=== PATIENT | female | born 1960 | race Caucasian/White ===

== ENCOUNTER 2023-01-12 20:13 | Emergency (ER) | payer OTHER, SELFPAY ==
--- NOTE | 2023-01-12 | DI.CT.S_ITS ---
PROCEDURE: CT LUMBAR SPINE WO CON INDICATIONS: FALL FROM LADDER, FRACTURED CALCANEUS TECHNIQUE: Noncontrast 3 mm thick sections acquired from the T12 level to the sacrum. Sagittal and coronal reformats were constructed. For radiation dose reduction, the following was used: automated exposure control. COMPARISON: [facility], CR, XR ANKLE RT MIN 3V, 01/12/2023, 20:37. FINDINGS: Image quality: There is mild motion artifact. Bones: There is preserved bony alignment. No acute vertebral body compression fractures. No suspicious lytic or blastic bony lesions. No pars defects. There is mild multilevel spinal canal and neural foraminal narrowing in the lower lumbar spine without high-grade stenosis. Soft tissues: No retroperitoneal masses or hematomas. Visualized aorta is normal in caliber. There is a 0.2 cm nonobstructing left renal stones. IMPRESSION: 1. No vertebral body compression fractures. Dictated by: Jesus Cruz M.D. on 01/12/2023 at 23:37 Approved by: Jesus Cruz M.D. on 01/12/2023 at 23:45
[2023-01-12 20:18] VITALS: BP 160/98; PULSE 98; RESP 17; TEMP 36.6; O2SAT 100; BMI 22.3
--- NOTE | 2023-01-12 20:21 | DI.RAD.S_ITS ---
PROCEDURE: XR ANKLE RT MIN 3V INDICATIONS: foot/ankle injury TECHNIQUE: 3 views of the ankle were acquired. COMPARISON: [facility], CR, XR FOOT RT MIN 3V, 01/12/2023, 20:37. FINDINGS: Bones: There is a mildly displaced fracture of the calcaneus extending to the subtalar joint. Remaining visualized osseous structures appear intact. Ankle mortise is normally aligned. No suspicious bony lesions. Soft tissues: No tibiotalar joint effusion. Achilles tendon appears normal. There is increased density in Kager's fat pad. IMPRESSION: 1. Mildly displaced calcaneus fracture extending to the subtalar joint. Dictated by: Jesus Cruz M.D. on 01/12/2023 at 22:05 Approved by: Jesus Cruz M.D. on 01/12/2023 at 22:06
--- NOTE | 2023-01-12 20:21 | DI.RAD.S_ITS ---
PROCEDURE: XR FOOT RT MIN 3V INDICATIONS: foot/ankle injury TECHNIQUE: 3 views of the foot were acquired. COMPARISON: None. FINDINGS: Bones: There is a mildly displaced fracture of the calcaneus with extension to the subtalar joint. No dislocations. Remaining visualized osseous structures appear intact. Soft tissues: No tibiotalar joint effusion. Achilles tendon appears normal. IMPRESSION: 1. Mildly displaced fracture of the calcaneus extending to the subtalar joint. Consider imaging of the spine if clinically indicated. Dictated by: Jesus Cruz M.D. on 01/12/2023 at 22:04 Approved by: Jesus Cruz M.D. on 01/12/2023 at 22:05
--- NOTE | 2023-01-12 20:54 | ED_ITS ---
HPI - Extremity Injury (Lower) General Chief Complaint: Extremity Injury, Lower Stated Complaint: rt ankle, leg possible fx Time Seen by Provider: 01/12/23 20:17 Source: patient Mode of arrival: Wheelchair History of Present Illness HPI Narrative: 62-year-old female nonsmoker without chronic medical history presents with a chief complaint of severe right foot and ankle pain. She states that she was working on a ladder and was a few feet off the ground, when she lost her footing and fell, landing largely on her right leg. She has significant pain in her ankle and heel with some swelling. She denies any knee, hip or back pain. She did not strike her head and has no neck pain. She denies prodromal symptoms such as dizziness, weakness or lightheadedness Related Data Previous Rx's Medication Instructions Recorded hydrocodone 5 mg-acetaminophen 325 1 tab PO Q4-6H PRN pain #20 tabs 01/12/23 mg tablet ondansetron 4 mg disintegrating 4 mg PO TID-QID PRN nausea and 01/12/23 tablet vomiting #10 tabs Allergies Allergy/AdvReac Type Severity Reaction Status Date / Time No Known Drug Allergies Allergy Verified 01/12/23 20:17 Review of Systems Review of Systems Narrative: GENERAL: Denies chills, fatigue, malaise, fever, sweats. HEENT: Denies sinus pain, ear pain, sore throat, difficulty swallowing, dizziness. RESPIRATORY: Denies dyspnea, cough, wheezing, hemoptysis, sputum. CARDIOVASCULAR: Denies chest pain, palpitations, orthopnea, edema, GASTROINTESTINAL: Denies nausea, vomiting, abdominal pain, diarrhea, constipation, melena. : Denies dysuria, frequency, incontinence, hematuria, urinary retention. MUSCULOSKELETAL: See HPI SKIN: Denies rash, skin lesions, or other NEUROLOGIC: Denies weakness, headache, numbness, change in speech, confusion, seizures, incoordination. PSYCHIATRIC: No concerning psychosocial issues. 12 point review of systems is negative except for those stated above Patient History Social History Smoking Status: Unknown if ever smoked Smoking Status: Unknown if ever smoked alcohol intake frequency: holidays/special occasions only Substance Use Type: does not use Exam Narrative Exam Narrative: GENERAL: [62] year old patient appears stated age. Well-developed patient, in mild distress. HEAD: Atraumatic. Normocephalic. EYES: Pupils equal round and reactive. Extraocular motions intact. No scleral icterus. No injection or drainage. ENT: Nose without bleeding, purulent drainage. Throat without erythema, tonsillar hypertrophy or exudate. Airway patent. NECK: Trachea midline. Non tender CARDIOVASCULAR: Regular rate and rhythm without murmurs, gallops, or rubs. RESPIRATORY: Clear to auscultation. Breath sounds equal bilaterally. No wheezes, rales, or rhonchi. GASTROINTESTINAL: Abdomen soft, non-tender, nondistended. EXTREMITIES: No hip or knee pain, negative squeeze test, right ankle and heel with moderate swelling and some ecchymosis, this is closed, isolated and neurovascularly intact BACK: Nontender without deformity or crepitance. No flank tenderness. NEURO: AOx3. SKIN: No rash or erythema of visible areas Initial Vital Signs Initial Vital Signs: Vital Signs Temperature 97.8 F 01/12/23 20:18 Pulse Rate 98 H 01/12/23 20:18 Respiratory Rate 17 01/12/23 20:18 Blood Pressure 160/98 H 01/12/23 20:18 Pulse Oximetry 100 01/12/23 20:18 Oxygen Delivery Method Room Air 01/12/23 20:18 Procedures Orthopedic Splinting/Casting Injury #1: Side: right Lower Extremity Injury Location: ankle Lower Extremity Immobilizer: Dubon dressing Other Orthopedic Equipment: crutches Post splinting neuro exam: intact Post splinting vascular exam: intact Placed by: Nursing Course Orders Ordered: ED Orders 01/12/23 20:21 XR ankle RT min 3V Stat XR foot RT min 3V Stat 01/12/23 22:13 CT LE RT wo con Stat Discontinued Medications Hydrocodone Bitart/Acetaminophen (Hydrocodone/Acet 5/325 Prepack) 1 bottle MISC SEEINSTR ONE Stop: 01/12/23 22:23 Last Admin: 01/12/23 22:38 Dose: 1 bottle Documented By: ERICH Hydrocodone Bitart/Acetaminophen (Hydrocodone/Acet 5/325 Tablet) 2 tab PO NOW ONE Stop: 01/12/23 22:23 Last Admin: 01/12/23 22:38 Dose: 2 tab Documented By: ERICH Ondansetron HCl (Ondansetron 4 Mg Odt Prepack) 1 bottle MISC SEEINSTR ONE Stop: 01/12/23 22:23 Last Admin: 01/12/23 22:38 Dose: 1 bottle Documented By: ERICH Consultations Consultation #1: Discussed with on-call orthopedist, Dr. Rangel. He is reviewed the history and physical exam as well as imaging. Recommends bulky Dubon, crutches, pain control, nonweightbearing and close follow-up, he will relay a message to Dr. Finn. He does request obtaining a CT of the lower extremity Vital Signs Vital signs: Vital Signs - 8 hr 01/12/23 20:18 Temperature 97.8 F Pulse Rate 98 H Respiratory Rate 17 Blood Pressure 160/98 H Pulse Oximetry 100 Oxygen Delivery Method Room Air MDM - Extremity Injury (Lower) MDM Narrative Medical decision making narrative: CC: 62-year-old female fall from ladder with right ankle pain Complicating co-morbidities: Age greater than 60 Data collected from: Patient Medical records reviewed: Prior notes reviewed in our EMR Differential considered, but not limited to: Ankle fracture versus calcaneal fracture versus lumbar injury versus other Exam documented above, pertinent findings include: No back pain, no knee pain, pain and swelling of right ankle with swelling and some ecchymosis this is closed, isolated and neurovascularly intact Imaging studies independently reviewed: Ankle and Foot x-rays demonstrate a displaced fracture of the calcaneus. Lumbar CT without acute findings. CT of lower extremity demonstrates comminution of calcaneal fracture with articular extension suggesting a type 2B intra-articular fracture Consultations: Discussed with orthopedist on-call, see details above Treatments: Vicodin, splinting, crutches Re-evaluations: Improved pain with above-stated therapies Discussion: Patient with fall from a few feet and isolated right ankle pain. Lumbar injury considered but patient has no pain and no findings on imaging. She has obvious calcaneal injury on plain films which is confirmed with CT. She is splinted with a bulky Dubon, given crutches and pain control. The importance of nonweightbearing is stressed. Extensive discussion with her about return precautions including detailed elements of the possibility of compartment syndrome. The importance of close follow-up also stressed. She is given contact information for the orthopedic office and instructed to call tomorrow, Disposition: see below, along with detailed discharge instructions that have be en reviewed with patient as well as indications for ED re-evaluation and additional outpatient follow up Discharge Plan Departure Patient Disposition: Home Clinical Impression: Calcaneal fracture Qualifiers: Encounter type: initial encounter Calcaneus location: body Fracture type: closed Fracture alignment: displaced Laterality: right Qualified Code(s): S92.011A - Displaced fracture of body of right calcaneus, initial encounter for closed fracture Activity Restrictions/Additional Instructions: *You have been diagnosed with [right calcaneus fracture] *What to do: *Please continue to take your regular medications as directed. [x ] New medication prescriptions sent to your pharmacy: [[facility] ] [ ] New medication written as a paper prescription [x] Tylenol and occasional Motrin for pain *Please follow up with [Huma ] of [facility] in 2-3 days, call for an appointment. Let them know you were seen in the Emergency Department and that we ask that you be seen in follow up. We will electronically transmit a record of today's note if your PCP is in our system *Return to Emergency Department if you should have any new, worsening or concerning symptoms, such as [worsening pain, significant swelling, cold extremities, numbness, tingling, weakness or other bothersome symptoms Splint Care: Keep splint clean and dry. Elevated affected body part to decrease swelling. OK to use ice pack on the affected body part. Use for 15-20 minutes each time, for 5-6x per day. If you develop worsening pain, numbness, tingling, discoloration of the affected body part, loosen the splint by loosening the RED wrap, and either see your doctor for an urgent re-assessment, or return to the Emergency Department. Return to the Emergency Department for any new or worsening symptoms. You have been prescribed a short course of narcotic medications. These are potentially dangerous and addictive medications that should be used carefully. While on these medications you cannot drive or operate heavy machinery. Additionally, you cannot sign legal documents or perform any duties such as this. 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 Please understand that we cannot provide further refills of narcotics or controlled substances through the ED and your pain management will need to be through your Primary Care Provider Prescriptions: New hydrocodone-acetaminophen 5-325 mg tablet 1 tab PO Q4-6H PRN (Reason: pain) Qty: 20 0RF ondansetron 4 mg tablet,disintegrating 4 mg PO TID-QID PRN (Reason: nausea and vomiting) Qty: 10 0RF Referrals: Mari Finn MD [Physician] - Stand Alone Forms: Patient Portal/API
--- NOTE | 2023-01-12 22:13 | DI.CT.S_ITS ---
PROCEDURE: CT LE RT WO CON INDICATIONS: fall from height, per ortho TECHNIQUE: Noncontrast 1mm axial sections acquired from the right acetabulum through the foot, with coronal and sagittal reformats. COMPARISON: [facility], CR, XR FOOT RT MIN 3V, 01/12/2023, 20:37. [facility], CR, XR ANKLE RT MIN 3V, 01/12/2023, 20:37. FINDINGS: Image quality: Excellent. Bones: There is a comminuted fracture of the calcaneus extending to the subtalar joint as well as the calcaneocuboid articulation. There is a primary fracture line through the central aspect of the posterior facet with a Y-shaped configuration extending medially and laterally at of the calcaneal body. The findings are compatible with a type 2B calcaneal fracture. Remaining visualized osseous structures appear intact. Soft tissues: There is extensive soft tissue swelling and subcutaneous edema within the hindfoot and around the ankle. The flexor, extensor, peroneal, and Achilles tendons appear intact. The visualized musculature appears preserved. IMPRESSION: 1. Comminuted calcaneal fracture with articular extension. The findings are suggestive of a type 2B intra-articular fracture. Dictated by: Jesus Cruz M.D. on 01/12/2023 at 23:46 Approved by: Jesus Cruz M.D. on 01/12/2023 at 23:59
[2023-01-12] MEDS: ONDANSETRON 4 MG ODT PREPACK 1 BOTTLE MISC (22:38)
[2023-01-12] MEDS: HYDROCODONE/ACET 5/325 PREPACK 1 BOTTLE MISC (22:38)
[2023-01-12] MEDS: HYDROCODONE/ACET 5/325 TABLET 2 TAB PO (22:38)
== END 2023-01-13 00:14 | disposition home or self-care (01) ==
PROVIDERS: Emergency Provider Emergency Medicine
DX: S92.011A Displaced fracture of body of right calcaneus, initial encounter for closed fracture (principal); W11.XXXA Fall on and from ladder, initial encounter
CPT/HCPCS: 72131; 73610; 73630; 73700; 99283; 99284

== ENCOUNTER 2023-01-22 13:11 | Day surgery (SDC) | payer OTHER, SELFPAY ==
[2023-01-22] VITALS (16 sets, daily range): BP systolic 122–223; BP diastolic 55–146; PULSE 60–127; RESP 8–21; TEMP 36.3–36.6; O2SAT 94–99; BMI 23.0
--- NOTE | 2023-01-22 | DI.RAD.S_ITS ---
PROCEDURE: XR CALCANEOUS RT MIN 2V INDICATIONS: ORIF CALCANEUS FRACTURE TECHNIQUE: Multiple intraoperative fluoroscopic views of the calcaneus were acquired. COMPARISON: None. FINDINGS: Bones: Multiple intraoperative fluoroscopic views of the calcaneus demonstrate interval placement of hardware which appears intact. IMPRESSION: Intraoperative fluoroscopic views of the calcaneus status post ORIF. Dictated by: Carlos Fischer M.D. on 01/22/2023 at 17:54 Approved by: Carlos Fischer M.D. on 01/22/2023 at 17:55
[2023-01-22] MEDS: LACTATED RINGERS 1,000 ML 42 ML IV (14:02)
--- NOTE | 2023-01-22 14:29 | PM.PREOP ---
Pre-operative Note Interval Note History & Physical reviewed/Exam performed by Physician: Yes Changes to H&P: No
[2023-01-22] MEDS: CEFAZOLIN 2 GM/100 ML PREMIX 100 ML IV (15:00)
--- NOTE | 2023-01-22 15:20 | SUR.OPER ---
Lateral on a marie bag, head on pillow, gel axillary roll in place, bottom leg bent with gel pad under knee to foot, upper leg straight and supported with pillows. Upper arm supported by pillows and secured over bottom arm to padded arm board. Safety belt at hip, tape over blanket lower legs.
[2023-01-22] MEDS: BUPIVACAINE 0.25% W/ EPI 30 ML VIAL 60 ML INJ (15:25)
[2023-01-22] MEDS: HYDROMORPHONE 2 MG INJ IV ×3 (16:55→17:08)
[2023-01-22] MEDS: MEPERIDINE 50 MG/ML INJ 25 MG IV (16:56)
[2023-01-22] MEDS: hydrOXYzine pamoate 25 MG CAPSULE 50 MG PO (16:59)
--- NOTE | 2023-01-22 17:06 | P.OP_ITS ---
Operative Date/Time/Diagnoses Date of procedure: 01/22/23 Time of procedure: 15:00 Pre-op diagnosis: Displaced fracture right calcaneus Post-op diagnosis: same Procedure & Clinicians Procedure: Open reduction internal fixation calcaneus fracture right CPT code 48862 Same procedure as scheduled: Yes Indications: Patient is a 62-year-old female that fell off a ladder on 01/12/2023 landing on her right heel. She was found to have a right calcaneal fracture with comminution intra-articular involvement and varus alignment. She was indicated for surgery to early mobilization and reduce the risk of posttraumatic arthritis. The risks and benefits of the procedure have been discussed with the patient and given the opportunity to ask questions. The risks of surgery include but are not limited to infection, malunion, nonunion, persistence of pain, damage to nerves and blood vessels, posttraumatic arthritis, DVT, PE, cardiopulmonary complications and . The patient expressed a thorough understanding of the risks and benefits of surgery and has elected to proceed. Consent was signed. Surgeon: Mari Finn Click Yes if Unassisted: Yes Anesthesia Type: General, Peripheral nerve block and Local Operative Notes Findings: displaced intra-articular calcaneus fracture, main incongruities varus alignment of the tuberosity. Small lateral split into the subtalar joint. Wire was advanced into the calcaneal tuberosity and used to lever the calcaneus out of varus once this was appropriate additional wires for the screws were placed across the fracture Closure Type: primary Specimen(s): none sent Prosthetic devices, grafts, tissues, transplants, or devices: [id number] monster screws 7.0 x 50mm, [id number] 70 monster screw times 40 mm Estimated Blood Loss (mL): 20 Blood products transfused: none Tourniquet time (min): 0 Procedure in detail: Patient was seen in the preoperative area the site of surgery was marked informed consent was confirmed. The patient was brought back to the operating room by the anesthesia team positioned on the operative table. General anesthetic was administered. A well-padded thigh tourniquet was placed. Patient was positioned to the lateral decubitus position on the beanbag with the right side up. A well-padded axillary roll was placed. All bony prominences well padded. The right lower extremity was prepped and draped in the standard sterile fashion. A formal time-out procedure was performed confirming the patient's side and site of surgery administration of appropriate preoperative antibiotic and informed consent. All were in agreement. Implants were in the room accounted for. Attention turned to the right foot. The C-arm was brought in and the landmarks and trajectories for ideal screw placement were drawn out on the foot. Next an axial image was obtained that demonstrated the varus alignment of the calcaneal tuberosity. K-wire for 1 of the saphenous screws was advanced into the calcaneus tuberosity. This was used to lever the tuberosity out of varus. After several maneuvers alignment was achieved and the wire was advanced across the fracture site to hold reduction. Additional K-wires were advanced towards the posterior superior facet and then across the sustentaculum. Lateral and axial fluoroscopy was scrutinized for alignment. Once I was satisfied with K- wire placement and the reduction. Incision was made down along the posterior longitudinal screw dissection was taken down to the bone. This was overdrilled and then countersunk. This point a 7050 mm screw from the Arthrex set was selected. A fully-threaded cortical screw was selected to maintain length and reduction. This was placed and checked in lateral and axial planes to be in appropriate alignment and centered in the tuberosity. This maintained calcaneus tuberosity alignment. Next and attempted 2nd axial screw was attempted this ran into screw impingement due to the patient's small calcaneus. This was removed and instead elected to be a sustentaculum screw. This was advanced over the previously obtained sustentaculum wire after this was overdrilled and the 40 mm 7.0 screw obtained excellent fixation into the sustentaculum. Screw placement was scrutinized on multi planer intraoperative fluoroscopy showed improvement of axial alignment and maintained posterior facet height and appropriate near anatomic alignment. There was no impingement to subtalar or talar navicular or tibiotalar range of motion. Final x-rays were obtained. Instruments were removed. Wounds were irrigated and closed with 3-0 nylon suture. 20 cc of 0.25% Marcaine with epinephrine was injected for local anesthesia. Well-padded splint was applied with Xeroform gauze Webril ABD pads and a plaster splint. Patient was awoken from anesthesia and taken to recovery room in good condition. Please note that a postoperative regional block was placed by the anesthesia team for postoperative pain control Complications: none Post-operative Condition: stable Disposition: PACU Plan for aftercare: Nonweightbearing x6 weeks. Elevate the extremity to reduce swelling. Start aspirin 325 mg daily for 6 weeks postoperative for DVT prophylaxis. Pain management prescription for oxycodone was sent to the patient's pharmacy as well as Zofran as an anti nausea medication.
--- NOTE | 2023-01-22 17:23 | SUR.PHASEI ---
Block start time [1708] . Monitoring initiated and maintained throughout procedure. Oxygen and medications given per anesthesiologist instructions. Patient remained stable throughout procedure, no adverse reactions noted. Block end time [1715].
[2023-01-22] MEDS: OXYCODONE IR 5 MG TABLET PO (17:36)
[2023-01-22] MEDS: METOCLOPRAMIDE 10 MG/2 ML INJ IV (17:37)
== END 2023-01-22 17:25 | disposition home or self-care (01) ==
PROVIDERS: Referring Provider Orthopaedic Surgery Foot and Ankle Surgery; Visit Provider Orthopaedic Surgery Foot and Ankle Surgery
PROC: (CPT 28415; principal; 2023-01-22 14:30)
DX: S92.011A Displaced fracture of body of right calcaneus, initial encounter for closed fracture (principal); S92.061A Displaced intraarticular fracture of right calcaneus, initial encounter for closed fracture; G89.18 Other acute postprocedural pain; W11.XXXA Fall on and from ladder, initial encounter
CPT/HCPCS: 28415; 64450; 73650; 76000; J0690; J1100; J1170; J1200; J2175; J2250; J2405; J2704; J2765; J3010

== ENCOUNTER 2023-01-24 06:47 | Emergency (ER) | payer OTHER, SELFPAY ==
[2023-01-24 07:00] VITALS: BP 97/57; PULSE 84; RESP 18; TEMP 36.9; O2SAT 96; BMI 22.3
--- NOTE | 2023-01-24 07:27 | ED.EXTPRO ---
HPI - Extremity Problem General Chief complaint: Extremity Problem,Nontraumatic Stated complaint: pain Time Seen by Provider: 01/24/23 07:04 Source: patient Mode of arrival: Wheelchair History of Present Illness HPI Narrative: Patient is a 62-year-old female who 3 days ago underwent a surgery to her right calcaneus. She did have a nerve block. Apparently the nerve block has worn off and the pain medication that she was prescribed was not improving. She contacted the emergency department last night and was told to increase the dose of her pain medication. She also contacted the on-call orthopedic surgeon has told her to do the same however she states that it was still having quite a bit of discomfort. States that it feels like a burning sensation. She is had no new trauma. Related Data Previous Rx's Medication Instructions Recorded aspirin 325 mg tablet,delayed 325 mg PO DAILY #42 tabs 01/22/23 release docusate sodium 100 mg capsule 100 mg PO BID #30 caps 01/22/23 (Colace) ondansetron 4 mg disintegrating 4 mg PO Q8H PRN nausea and 01/22/23 tablet vomiting #7 tabs oxycodone 5 mg tablet 5 mg PO Q4H PRN pain #40 tabs 01/22/23 Allergies Allergy/AdvReac Type Severity Reaction Status Date / Time No Known Drug Allergies Allergy Verified 01/22/23 13:30 Review of Systems Musculoskeletal Musculoskeletal: Reports system reviewed and no additional complaints, except as documented Integumentary/Breasts Skin/Breast: Reports system reviewed and no additional complaints, except as documented Neurologic Neurologic: Reports system reviewed and no additional complaints, except as documented Patient History Social History Smoking Status: Unknown if ever smoked alcohol intake: current Smoking Status: Unknown if ever smoked alcohol intake frequency: holidays/special occasions only Substance Use Type: does not use Exam Initial Vital Signs Initial Vital Signs: Vital Signs Temperature 98.4 F 01/24/23 07:00 Pulse Rate 84 01/24/23 07:00 Respiratory Rate 18 01/24/23 07:00 Blood Pressure 97/57 L 01/24/23 07:00 Pulse Oximetry 96 01/24/23 07:00 Oxygen Delivery Method Room Air 01/24/23 07:00 Cardio Pulses: dorsalis pedis present on the right Skin Other: Surgical incisions appear well. There covered with Xeroform. There was no bleeding. Neuro Sensory Exam: no sensory deficits noted Extrem General: capillary refill normal Other: Swelling and bruising from her mid calf to her toes of the right lower extremity. Procedures Orthopedic Splinting/Casting Injury #1: Side: right Lower Extremity Injury Location: foot Lower Extremity Immobilizer: posterior splint Post splinting neuro exam: no change Post splinting vascular exam: no change Placed by: Provider Course Orders Ordered: Discontinued Medications Hydromorphone HCl (Hydromorphone 1 Mg Inj) 1 mg IM NOW ONE Stop: 01/24/23 07:28 Last Admin: 01/24/23 07:30 Dose: 1 mg Documented By: ERICH Ondansetron HCl (Ondansetron 4 Mg Odt) 4 mg SL NOW ONE Stop: 01/24/23 07:33 Last Admin: 01/24/23 07:33 Dose: 4 mg Documented By: ERICH Vital Signs Vital signs: Vital Signs - 8 hr 01/24/23 07:00 Temperature 98.4 F Pulse Rate 84 Respiratory Rate 18 Blood Pressure 97/57 L Pulse Oximetry 96 Oxygen Delivery Method Room Air MDM - Extremity (Nontraumatic) MDM Narrative Medical decision making narrative: Patient is approximately 48 hours status post surgery. Her operative splint was removed. She states she did feel somewhat better after that but completely. The surgical sites appear well. There was no signs of infection. No bleeding. I have low suspicion for compartment syndrome. She is vascularly intact. She was given pain medication. A new posterior splint was placed. Will have her continue to take her pain medication and contact her orthopedic doctor tomorrow for follow-up. Discharge Plan Departure Patient Disposition: Home Clinical Impression: Post-operative pain Instructions: DI for Postoperative Pain Activity Restrictions/Additional Instructions: Continue to follow all of the postoperative instructions given to you by the orthopedic surgeon. Continue to take the pain medication as directed. Contact the orthopedic surgeon's office tomorrow for a follow-up. Return to the emergency department for new symptoms. Prescriptions: No Action oxycodone 5 mg tablet 5 mg PO Q4H PRN (Reason: pain) Qty: 40 0RF Rx Instructions: postop exempt ondansetron 4 mg tablet,disintegrating 4 mg PO Q8H PRN (Reason: nausea and vomiting) Qty: 7 1RF docusate sodium [Colace] 100 mg capsule 100 mg PO BID Qty: 30 1RF aspirin 325 mg tablet,delayed release (DR/EC) 325 mg PO DAILY Qty: 42 0RF Stand Alone Forms: Patient Portal/API
[2023-01-24] MEDS: HYDROMORPHONE 1 MG INJ IM (07:30)
[2023-01-24] MEDS: ONDANSETRON 4 MG ODT SL (07:33)
[2023-01-24 08:23] VITALS: BP 101/62; PULSE 88; RESP 16; O2SAT 98
== END 2023-01-24 08:23 | disposition home or self-care (01) ==
PROVIDERS: Emergency Provider Emergency Medicine
DX: G89.18 Other acute postprocedural pain (principal)
CPT/HCPCS: 96372; 99283; J1170

== ENCOUNTER 2023-01-28 19:43 | Emergency (ER) | payer OTHER, SELFPAY ==
[2023-01-28 19:56] VITALS: BP 158/85; PULSE 79; RESP 17; TEMP 37.2; O2SAT 99; BMI 21.4
[2023-01-28] MEDS: ONDANSETRON 4 MG ODT SL (20:07)
[2023-01-28 22:17] VITALS: BP 146/86; PULSE 74; RESP 16; TEMP 36.8; O2SAT 96
[2023-01-28] MEDS: ACETAMINOPHEN 325 MG TABLET 650 MG PO (23:33)
[2023-01-28] MEDS: OXYCODONE IR 5 MG TABLET PO (23:34)
--- NOTE | 2023-01-29 00:48 | ED_ITS ---
HPI - Extremity Injury (Lower) General Chief Complaint: Extremity Injury, Lower Stated Complaint: rt foot pain, discoloration Time Seen by Provider: 01/29/23 00:47 Source: patient Mode of arrival: Wheelchair History of Present Illness HPI Narrative: Patient is a 62-year-old female who fractured her calcaneus on 01/12/2023 after falling off a ladder. She had surgery obvious 4th for repair. She was in the ED on January 24 for postoperative pain and returns today because the colors of her toes have changed continues to have severe pain she is worried about compartment syndrome. She has now taken off her splint and is rubbing her leg. She reports that she was out of her pain medicine her friend picked it up for her today she is taken 2 tablets of her pain meds, 1 in the ED Related Data Previous Rx's Medication Instructions Recorded aspirin 325 mg tablet,delayed 325 mg PO DAILY #42 tabs 01/22/23 release docusate sodium 100 mg capsule 100 mg PO BID #30 caps 01/22/23 (Colace) ondansetron 4 mg disintegrating 4 mg PO Q8H PRN nausea and 01/22/23 tablet vomiting #7 tabs oxycodone 5 mg tablet 5 mg PO Q4H PRN pain #40 tabs 01/22/23 Allergies Allergy/AdvReac Type Severity Reaction Status Date / Time No Known Drug Allergies Allergy Verified 01/28/23 23:01 Review of Systems Review of Systems ROS Unobtainable: All systems reviewed & are unremarkable except as noted in HPI and below Patient History Social History Smoking Status: Never smoker alcohol intake: current Smoking Status: Never smoker alcohol intake frequency: a few times a week Substance Use Type: does not use Exam Initial Vital Signs Initial Vital Signs: Vital Signs Temperature 98.9 F 01/28/23 19:56 Pulse Rate 79 01/28/23 19:56 Respiratory Rate 17 01/28/23 19:56 Blood Pressure 158/85 H 01/28/23 19:56 Pulse Oximetry 99 01/28/23 19:56 Oxygen Delivery Method Room Air 01/28/23 19:56 GENERAL: Alert 62-year-old female CARDIOVASCULAR: peripheral pulses in tact, cap refill <2 sec RESPIRATORY: No respiratory distress, speaks in full sentences without difficulty EXTREMITIES: Normal range of motion, no clubbing or edema. Neurovascularly intact Right lower extremity splint has been removed by patient calf is soft no swelling no tenderness distal pedal pulse is felt. Incision sites are clean and dry there is mild swelling is moving her toes without any difficulty strong distal pedal pulse intact NEUROLOGICAL: Cranial nerves II through XII grossly intact. Normal gait and speech. SKIN: Warm, dry, no petechiae, no rashes or lesions. Procedures Orthopedic Splinting/Casting Injury #1: Side: right Lower Extremity Injury Location: lower leg Lower Extremity Immobilizer: posterior splint Post splinting neuro exam: intact Post splinting vascular exam: intact Placed by: Nursing Course Orders Ordered: Discontinued Medications Acetaminophen (Acetaminophen 325 Mg Tablet) 650 mg PO NOW ONE Stop: 01/28/23 23:08 Last Admin: 01/28/23 23:33 Dose: 650 mg Documented By: MYKE Ondansetron HCl (Ondansetron 4 Mg Odt) 4 mg SL NOW PRN PRN Reason: Nausea And Vomiting Last Admin: 01/28/23 20:07 Dose: 4 mg Documented By: JERRELL Ondansetron HCl (Ondansetron 4 Mg/2 Ml Inj) 4 mg IV NOW PRN PRN Reason: Nausea And Vomiting Oxycodone HCl (Oxycodone Ir 5 Mg Tablet) 5 mg PO NOW ONE Stop: 01/28/23 23:08 Last Admin: 01/28/23 23:34 Dose: 5 mg Documented By: MYKE Vital Signs Vital signs: Vital Signs - 8 hr 01/28/23 22:17 01/29/23 01:17 Temperature 98.3 F Pulse Rate 74 75 Respiratory Rate 16 19 Blood Pressure 146/86 H 138/79 Pulse Oximetry 96 100 Oxygen Delivery Method Room Air Room Air MDM - Extremity Injury (Lower) Lab Data Labs: Urine Dip Bedside Urine Glucose Negative Bedside Urine Bilirubin - Negative Bedside Urine Ketone - Negative Urine Specific [place] 1.025 Bedside Urine Occult Blood - Negative Bedside Urine pH 5.5 Bedside Urine Protein - Negative Bedside Urine Urobilinogen - Negative Bedside Urine Nitrite - Negative Bedside Urine Leukocytes - Negative Esterase MDM Narrative Medical decision making narrative: At this time there is no evidence of compartment syndrome or infection. Patient does not seem to be staying on top of her pain meds are just not tolerating postoperative pain. Her pain prescription has been refilled she has it. New splint and potting have been placed. She is to follow-up with orthopedics. Patient does not have any tenderness in her catheters no swelling I have very low suspicion for a DVT. Much more suspect this is postoperative pain. Discharge Plan Departure Patient Disposition: Home Clinical Impression: Post-operative pain Instructions: DI for Postoperative Pain Activity Restrictions/Additional Instructions: *You have been diagnosed with postoperative pain *What to do: Elevate and ice as often as possible this is going to keep down the swelling. Please continue to move and get around as best you can with crutches. Please follow orthopedic advice. *Continue to take medications as directed Take pain medication as directed *Follow up with your primary care provider in 2-3 days or call [phone] *Return to ER if you should have severe intense pain and swelling with moving toes, fever significant calf pain or swelling or any new, worsening or concerning symptoms Prescriptions: No Action oxycodone 5 mg tablet 5 mg PO Q4H PRN (Reason: pain) Qty: 40 0RF Rx Instructions: postop exempt ondansetron 4 mg tablet,disintegrating 4 mg PO Q8H PRN (Reason: nausea and vomiting) Qty: 7 1RF docusate sodium [Colace] 100 mg capsule 100 mg PO BID Qty: 30 1RF aspirin 325 mg tablet,delayed release (DR/EC) 325 mg PO DAILY Qty: 42 0RF Stand Alone Forms: Patient Portal/API
[2023-01-29 01:17] VITALS: BP 138/79; PULSE 75; RESP 19; O2SAT 100
== END 2023-01-29 01:21 | disposition home or self-care (01) ==
PROVIDERS: Emergency Provider Emergency Medicine
DX: G89.18 Other acute postprocedural pain (principal)
CPT/HCPCS: 81003; 99283

== ENCOUNTER → 2023-06-01 18:39 | Outpatient (CLI) | payer OTHER, SELFPAY ==
--- NOTE | 2023-06-01 | DI.MRI.S_ITS ---
PROCEDURE: MR ANKLE RT WO CON INDICATIONS: RIGHT ANKLE PAIN TECHNIQUE: Noncontrast sagittal T1 spin echo and T2 fast spin echo with fat saturation, axial proton density fast spin echo and T2 fast spin echo with fat saturation, coronal T1 spin echo and T2 fast spin echo with fat saturation through the ankle/hindfoot. COMPARISON: [facility] [place], CR, XR FOOT 3 VIEWS WEIGHT BEARING RIGHT, 05/25/2023, 16:30. [facility] [place], CR, XR CALCANEUS RIGHT, 05/04/2023, 11:14. [facility] [place], CR, XR ANKLE 1 OR 2 VIEWS WEIGHT BEARING BILATERAL, 05/25/2023, 16:38. FINDINGS: Image quality: Diagnostic. Susceptibility artifact from calcaneal fixation hardware are seen. Bones and joints: There is prior fixation of calcaneus with susceptibility artifacts from surgical hardware. Oblique fracture line through mid weight-bearing portion of calcaneus remains visible with T2 hyperintense signal. Mild adjacent edema is seen. Osteoarthritic changes are noted throughout midfoot and hindfoot joints. No acute fracture or dislocation. No gross osteochondral injuries of talar dome. Small amount of tibiotalar joint effusion is seen, no gross loose bodies. Medial structures: The posterior tibialis tendon is thickened with small amount of fluid distending tendon sheath at the level of distal talus and talonavicular joint. The flexor digitorum longus, and flexor hallucis longus tendons are intact. The posterior tibial neurovascular bundle appears normal within the tarsal tunnel, without extrinsic mass effect. The deltoid ligament and spring ligament are thickened. Lateral structures: The anterior talofibular, calcaneofibular, and posterior talofibular ligaments appear intact. More superiorly, the anterior and posterior tibiofibular ligaments appear intact, as is the intermalleolar ligament. The tibiofibular syndesmosis is normal in width at 2 mm or less. The peroneus longus and brevis tendons are thickened at the level of mid to distal calcaneus extending to the level of calcaneocuboid joint. Edema is seen within the sinus tarsi suggest clinical correlation for possible sinus tarsi syndrome. Anterior structures: The tibialis anterior, extensor hallucis longus, and extensor digitorum longus tendons appear mildly thickened particularly involving tibialis anterior and extensor digitorum longus tendons at the level of tibiotalar joint.. The dorsal talonavicular ligament appears intact. Posterior and plantar structures: Achilles tendon is intact. Medial and lateral bands of the plantar fascia are of normal thickness. No abductor digiti quinti muscle atrophy to suggest Kerr neuropathy. IMPRESSION: 1. Post ORIF changes in calcaneus with susceptibility artifacts. Patient's known nondisplaced calcaneal fracture line remains visible with mild adjacent edema. Osteoarthritic changes throughout midfoot and hindfoot joints. No new fracture or dislocation. No gross osteochondral injuries are seen. Small joint effusion, no loose bodies. 2. Low-grade tenosynovitis involving posterior tibialis tendon at the level of distal talus and talonavicular joint. 3. [id number] tendinosis involving peroneus tendons at the level of mid to distal calcaneus and calcaneocuboid joint. 4. Low-grade medial ankle ligament sprain. The lateral ligaments are intact. 5. Edema within the sinus tarsi, suggest clinical correlation for possible sinus tarsi syndrome. Dictated by: Billy Camarillo M.D. on 06/02/2023 at 20:15 Approved by: Billy Camarillo M.D. on 06/02/2023 at 20:30
== END ==
PROVIDERS: Referring Provider Orthopaedic Surgery Foot and Ankle Surgery; Visit Provider Orthopaedic Surgery Foot and Ankle Surgery
DX: S92.014D Nondisplaced fracture of body of right calcaneus, subsequent encounter for fracture with routine healing (principal); S93.401A Sprain of unspecified ligament of right ankle, initial encounter; M65.871 Other synovitis and tenosynovitis, right ankle and foot; M25.471 Effusion, right ankle; M67.88 Other specified disorders of synovium and tendon, other site
CPT/HCPCS: 73721

== ENCOUNTER 2023-08-18 13:55 | Day surgery (SDC) | payer OTHER, SELFPAY ==
[2023-08-18] VITALS (10 sets, daily range): BP systolic 131–170; BP diastolic 77–100; PULSE 73–90; RESP 12–17; TEMP 36.4–36.9; O2SAT 94–99; BMI 22.3; BMI 23.1
--- NOTE | 2023-08-18 | DI.RAD.S_ITS ---
PROCEDURE: XR ANKLE RT 2V INDICATIONS: REMOVEL OF DEEP IMPLANTS TECHNIQUE: 1 views of the ankle were acquired. COMPARISON: [facility] [place], CR, XR FOOT 3 VIEWS WEIGHT BEARING RIGHT, 05/25/2023, 16:30. [facility], CR, XR ANKLE RT MIN 3V, 01/12/2023, 20:37. FINDINGS: Single intraoperative image is acquired. Previous surgical hardware is seen. IMPRESSION: Intraoperative image. Dictated by: Rowena Keith M.D. on 08/18/2023 at 21:33 Approved by: Rowena Keith M.D. on 08/18/2023 at 21:34
[2023-08-18] MEDS: LACTATED RINGERS 1,000 ML 42 ML IV ×2 (14:52→16:54)
--- NOTE | 2023-08-18 15:35 | PM.HP.1 ---
History of Present Illness History of Present Illness Date Patient Seen: 08/18/23 Time Patient Seen: 15:35 Chief complaint: SD Narrative: The patient is a 62-year-old female that fell off a ladder on 01/12/2023 landing on her right leg sustaining a right calcaneal fracture. She had operative fixation of her calcaneal fracture on 01/22/2023. She has had persistent pain. A fracture is healed. She is requested hardware removal additionally she has persistent pain along her peroneal tendons and I recommended peroneal tendon exploration possible debridement. [facility], [facility] Medical History Anesthesia complication Surgical History History of open reduction and internal fixation (ORIF) procedure (01/22/23) Social History Smoking Status: Former smoker alcohol intake: current Meds Home Medications and Allergies Allergies Allergy/AdvReac Type Severity Reaction Status Date / Time No Known Drug Allergies Allergy Verified 01/28/23 23:01 Review of Systems Review of Systems ROS: Yes All systems reviewed with the patient and are negative except as otherwise documented Exam Vital Signs (past 8 hours): - 08/18/23 14:47 Temperature 97.5 F L Pulse Rate 73 Respiratory Rate 16 Blood Pressure 133/81 Pulse Oximetry 99 Oxygen Delivery Method Room Air Oxygen Delivery Method Room Air Narrative Exam Narrative: Alert and oriented female no acute distress. Heart regular rate and rhythm. Lungs clear to auscultation bilaterally. Gait full weight-bearing. Right lower extremity shows grossly normal alignment mild swelling. No erythema or signs of infection. Well-healed surgical incisions. Tenderness along the course of the peroneal tendons all the way to the base of the 5th metatarsal. No subluxation or dislocation. Tenderness in the sinus tarsi and posterior tear. Brisk capillary refill. Palpable dorsalis pedis pulse. Tenderness follow up patient's sinus tarsi. Sensation grossly Assessment & Plan Assessment and plan (1) Right peroneal tendinosis: Status: Acute (2) Painful orthopaedic hardware: Status: Acute (3) Sinus tarsi syndrome of right foot: Status: Acute Plan Persistent right foot pain after calcaneus fracture. Calcaneus fracture healed on imaging. Some tendinopathy around the peroneals but no gross tear on MRI. Does have edema in the sinus tarsi. Consistent with sinus tarsi syndrome or inflammation. We discussed risks benefits and alternatives to surgical treatment versus sinus tarsi injection. She requests hardware removal and exploration peroneal tendons. She has been indicated for surgery. Plans for calcaneal hardware removal peroneal tendon exploration and debridement sinus tarsi injection. The risks and benefits of the procedure have been discussed with the patient and given the opportunity to ask questions. The risks of surgery include but are not limited to infection, malunion, nonunion, persistence of pain, damage to nerves and blood vessels, posttraumatic arthritis, DVT, PE, coardiopulmonary complications and . The patient expressed a thorough understanding of the risks and benefits of surgery and has elected to proceed. Consent was signed. Following surgery she will be weightbear as tolerated in a boot for 2 weeks until the incision is healed and then wean out the boot as tolerated. Quality VTE Deep Vein Thrombosis/Pulmonary Embolism Present on Admission: No
[2023-08-18] MEDS: CEFAZOLIN 2 GM/100 ML PREMIX 100 ML IV (15:56)
--- NOTE | 2023-08-18 16:19 | SUR.OPER ---
Lateral on a marie bag, head on pillow, gel axillary roll in place AT ARMPIT, bottom leg bent with gel pad under knee to foot, upper leg straight and supported with BLANKETS. Upper arm supported by pillows and secured over bottom arm to padded arm board. Safety belt at hip, tape over blanket lower legs.
[2023-08-18] MEDS: BUPIVACAINE 0.25% (PF) 30 ML, EPINEPHrine 0.15 MG INJ (16:27)
[2023-08-18] MEDS: BUPIVACAINE 0.5% (PF) 30 ML VIAL INJ (16:29)
--- NOTE | 2023-08-18 17:35 | P.OP_ITS ---
Operative Date/Time/Diagnoses Date of procedure: 08/18/23 Time of procedure: 16:00 Pre-op diagnosis: Painful orthopedic hardware, sinus tarsi right, peroneal tendinosis, right foot Post-op diagnosis: other (Painful orthopedic hardware, sinus tarsi syndrome right, peroneal tendinosis right foot, peroneal tendon tear right) Procedure & Clinicians Procedure: 1. Repair peroneal tendon, right peroneus brevis tendon tear CPT code 21918 with debridement peroneus brevis and peroneus longus tendons 2. Removal of deep implants 2 separate sites 1 lateral calcaneus CPT code 41406 3. Removal of deep implant 2nd site posterior calcaneus, separate incision CPT code 07652+59 4. Sinus tarsi subtalar joint injection CPT code 06927, right Same procedure as scheduled: Yes Indications: Patient is a 62-year-old female that underwent a ORIF for a calcaneus fracture her fracture healed she had persistent lateral pain along her peroneal tendons as well as at her implants. MRI demonstrated peroneal tendinosis inflammation within the sinus tarsi and a healed fracture. She was indicated for removal of painful hardware exploration debridement of the peroneal tendons and repair as indicated and sinus tarsi injection. Risks and benefits were discussed. The risks and benefits of the procedure have been discussed with the patient and given the opportunity to ask questions. The risks of surgery include but are not limited to infection, wound healing problems, persistence of pain, incomplete hardware removal, damage to nerves and blood vessels, posttraumatic arthritis, DVT, PE, cardiopulmonary complications and . The patient expressed a thorough understanding of the risks and benefits of surgery and has elected to proceed. Consent was signed. Surgeon: Mari Finn Click Yes if Unassisted: Yes Anesthesia Type: General and Local Operative Notes Findings: Peroneal tendinosis, backside peroneus brevis tendon tear was repaired with a tubularizing stitch. Retained calcaneal screws x2 removed in total. Scarring around sinus tarsi. Visualization protection and removal of scar tissue around the sural nerve. Closure Type: primary Specimen(s): none sent Estimated Blood Loss (mL): 30 Blood products transfused: none Tourniquet time (min): 39 Procedure in detail: Patient was seen in the preoperative area the site of surgery was marked informed consent confirmed. The patient was brought back to the operating room by the anesthesia team positioned supine on operative table general anesthetic was administered. The patient was then positioned onto the lateral position on the beanbag with well-padded bony prominences. A axillary roll was placed. The down leg was well padded. A thigh tourniquet was applied to the right operative extremity. And then the right lower extremity was prepped and draped in the st andard sterile fashion with a formal time-out procedure performed confirming the patient's side and site of surgery administration of appropriate preoperative antibiotics. All were in agreement. There was an SCD on the contralateral lower extremity. Attention was turned to the right leg Esmarch was used for exsanguination the tourniquet raised on the thigh to 250 mmHg. C-arm was brought in and localization of the posterior to anterior calcaneal screw was located on the posterior heel. A small incision was made through the skin and blunt dissection taken down to the back of the heel. The wire for the cannulated screw was then positioned until it fell into the screw tract and the screwdriver from the paragon set was used to remove the posterior to anterior 7.0 screw once this was completed the area was irrigated and closed with 3-0 nylon suture. Next attention was turned to a separate incision that followed the course of the peroneal tendons from the 3 cm above the retromalleolar area around the lateral malleolus and towards the base of the 4th metatarsal this was taken down through the skin subcutaneous tissue there was scarring laterally the site of the 2nd percutaneous screw this was carefully dissected through the subcutaneous tissues. The sural nerve was visualized freed up and protected throughout the dissection. Next attention was turned to the peroneal tendon sheath this was opened carefully proximally as there was significant scarring right in the retromalleolar area once this was opened and isolated the peroneal tendons were protected with a [place] why the rest of the peroneal tendon sheath was opened above it from proximal to distal to the insertion site on the 5th metatarsal for the peroneus brevis and to the peroneus longus where visualization was lost when it dives under the cuboid. The peroneal tendons were inspected there was tendinosis proximally and distally that was debrided carefully with the tenotomy scissors as well as small amount of low-lying peroneus brevis muscle belly. Then the tendons were inspected again there was a backside tear of the peroneus brevis tendon this was debrided and repaired with a tubularizing 3-0 Vicryl stit ch. Peroneus longus demonstrated mild tendinopathy which was debrided but no formal repair was indicated for the peroneus longus. Next the peroneal tendons were retracted out of the way and the lateral to medial calcaneal screw was localized using fluoroscopy this was buried in the bone rongeur was used to remove small amount of bone and expose the screw head again a wire was placed in the cannulated screw then the screwdriver over the wire to remove the screw in total. X-ray was brought in to confirm all hardware was removed. This time the rongeur was used to smooth out the bony prominences and a touch of bone wax was applied to make sure there was smooth surfaces as the lateral to medial screw ran near the peroneal tendon track. Once this was completed the wound was irrigated the peroneal tendons were replaced in the groove and the peroneal tendon sheath closed over the ankle was taken through range of motion peroneal tendons were stable in their sheath without any evidence of dislocation were gliding smoothly. Next tourniquet was released and hemostasis was achieved. Deep tissue was closed with 2-0 and 3-0 Vicryl suture the skin with 4-0 Monocryl and 3-0 nylon suture. Once the skin was closed local anesthetic was injected around the skin and then through separate injection track mixture of 4 cc of 0.5% Marcaine and 1 cc of 40 milligrams/milliliter of Depo-Medrol was injected into the sinus tarsi. This completed the procedure sterile dressing was applied with Xeroform gauze Webril and an Conrad wrap. Drapes removed. The patient was placed into her postoperative Cam boot. She was awoken from anesthesia and taken to the recovery room in good condition there were no immediate complications was present procedure. All counts were correct. Complications: none Post-operative Condition: stable Disposition: PACU Plan for aftercare: Weightbear as tolerated in the boot for 2 weeks for incision healing. May come out of the boot for sleep. Use boot for weight-bearing. Use crutches or walker for support as needed. Keep dressing clean dry and intact. Follow up in 2-3 weeks for suture removal.
[2023-08-18] MEDS: OXYCODONE IR 5 MG TABLET PO (17:42)
[2023-08-18] MEDS: ACETAMINOPHEN 325 MG TABLET 650 MG PO (17:42)
== END 2023-08-18 18:32 | disposition home or self-care (01) ==
PROVIDERS: Referring Provider Orthopaedic Surgery Foot and Ankle Surgery; Visit Provider Orthopaedic Surgery Foot and Ankle Surgery
PROC: (CPT 27658; principal; 2023-08-18 15:15)
PROC: (CPT 27658; 2023-08-18 15:15)
DX: S92.011A Displaced fracture of body of right calcaneus, initial encounter for closed fracture (principal); T84.84XA Pain due to internal orthopedic prosthetic devices, implants and grafts, initial encounter; M25.571 Pain in right ankle and joints of right foot; M67.88 Other specified disorders of synovium and tendon, other site
CPT/HCPCS: 27658; 20605; 20680 ×2; 73600; 76000; J0171; J0690; J1100; J1170; J2250; J2405; J2704; J2919; J3010; J3490

== ENCOUNTER 2023-12-24 16:03 | Emergency (ER) | payer OTHER, SELFPAY ==
[2023-12-24] VITALS (14 sets, daily range): BP systolic 150–213; BP diastolic 84–109; PULSE 64–78; RESP 14–23; TEMP 37.3; O2SAT 98–100; BMI 23.1
--- NOTE | 2023-12-24 16:17 | EKG_ITS ---
[address] [id number] [address] [place] [address] Test Date: 2023-12-24 Pat Name: Trinh Bocanegra Department: Room: Gender: Female Section Chief: : 1960 Requested By: Order Number: [id number] Reading MD: Sina Kebede Measurements Intervals Vesper Rate: 70 P: 55 OH: 128 QRS: 18 QRSD: 82 T: 25 QT: 412 QTc: 444 Interpretive Statements Normal sinus rhythm Electronically Signed On 12-28-2023 9:00:08 PDT by Sina Kebede
--- NOTE | 2023-12-24 16:17 | DI.RAD.S_ITS ---
PROCEDURE: XR CHEST 1V INDICATIONS: chest pain TECHNIQUE: One view of the chest was acquired. COMPARISON: None. FINDINGS: Surgical changes and devices: None. Lungs and pleura: Lungs are clear. No pleural effusions or pneumothorax. Mediastinum: Mediastinal contours appear normal. Heart size is normal. Bones and chest wall: No suspicious bony lesions. Overlying soft tissues appear unremarkable. IMPRESSION: No acute cardiopulmonary abnormality is seen. Dictated by: Sanket Birmingham M.D. on 12/24/2023 at 17:24 Approved by: Sanket Birmingham M.D. on 12/24/2023 at 17:25
[2023-12-24 16:57] LABS: Prothrombin Time 11.3 SECONDS (9.4-12.5)
[2023-12-24 17:00] LABS: PTT Partial Thromboplastin Tim 34 SECONDS (25.1-36.5)
[2023-12-24 17:01] LABS: Alanine Aminotransferase 23 IU/L (<35); Albumin 4.4 g/dL (3.5-5.0); Albumin Globulin Ratio 1.6 (1.0-2.8); Alkaline Phosphatase 101 U/L (38-126); Aspartate Aminotransferase 31 IU/L (14-36); BUN Creatinine Ratio 33.9 (6-22); Bilirubin Total 0.4 mg/dL (0.2-1.3); Blood Urea Nitrogen 20 mg/dL (7-17); Calcium 9.8 mg/dL (8.4-10.2); Carbon Dioxide 25 mmol/L (22-32); Chloride 109 mmol/L (98-107); Creatine Kinase 219 U/L (30-135); Estimated Glomerular Filt Rate > 60 mL/min (>60); Globulin 2.7 g/dL (1.7-4.1); Glucose 93 mg/dL (80-110); HEMOLYSIS < 15 (0-50); Lipase 108 U/L (23-300); Magnesium 2.2 mg/dL (1.6-2.3); Potassium 3.7 mmol/L (3.4-5.1); Sodium 138 mmol/L (137-145); Total Protein 7.1 g/dL (6.3-8.2)
[2023-12-24 17:02] LABS: Add Manual Diff / Slide Review NO; Basophils Absolute Auto 100 /uL (0-100); Basophils Percent Auto 1.8 % (0-2); Eosinophils Absolute Auto 100 /uL (0-450); Eosinophils Percent Auto 1.1 % (2-4); Hematocrit 38.1 % (36-46); Hemoglobin 13.1 g/dL (12.0-16.0); Lymphocytes Absolute Auto 1700 /uL (1100-4500); Lymphocytes Percent Auto 32.7 % (25-40); Mean Corpuscular HGB Conc 34.5 % (30-36); Mean Corpuscular Hemoglobin 30.1 PG (26-34); Mean Corpuscular Volume 87.4 fL (80-100); Monocytes Absolute Auto 300 /uL (0-900); Monocytes Percent Auto 6.2 % (3-14); Neutrophils Absolute Auto 3000 /uL (1500-7000); Neutrophils Percent Auto 58.2 % (50-75); Platelet Count 251 X10^3/uL (150-400); Red Blood Cell Count 4.36 X10^6/uL (4.0-5.2); Red Cell Distribution Width 12.8 % (11.6-14.8); White Blood Cell Count 5.2 X10^3/uL (4.5-11.0)
[2023-12-24 17:13] LABS: NT-proBNP (BNP-Adult 18+) 75 pg/mL (<125); Troponin I < 0.012 ng/mL (0.01-0.034)
--- NOTE | 2023-12-24 18:22 | ED.ARRPALP ---
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 She has no discomfort in her neck arm back shoulder blade areas when these events occur. They did not seem to be brought on by activity or food or position. Sometimes when they are present she can cough and make them go away. She does not recall a diagnosis of SVT, or atrial fibrillation, or atrial flutter, or any other specific heart rhythm disturbance. She believes that she has a heart murmur, can not recall last echocardiogram, no surgery or interventions in the past or planned. No recent fevers or chills cough symptoms. No diarrhea. No new medications. No new [id number] products. Denies drug or alcohol use. Related Data Previous Rx's Medication Instructions Recorded ondansetron HCl 4 mg tablet 4 mg PO Q8H PRN nausea and 08/18/23 vomiting #5 tabs oxycodone 5 mg tablet 5 mg PO Q4H PRN pain #30 tabs 08/18/23 Allergies Allergy/AdvReac Type Severity Reaction Status Date / Time No Known Drug Allergies Allergy Verified 12/24/23 16:17 Review of Systems Review of Systems Narrative: Per HPI Patient History Medical History Anesthesia complication Surgical History History of open reduction and internal fixation (ORIF) procedure (01/22/23) Social History Smoking Status: Former smoker alcohol intake: current Smoking Status: Former smoker alcohol intake frequency: a few times a week Substance Use Type: does not use Exam Narrative Exam Narrative: GENERAL: Well-developed patient, in mild distress. HEAD: Atraumatic. Normocephalic. EYES: Pupils equal round and reactive. Extraocular motions intact. No scleral icterus. No injection or drainage. ENT: Nose without bleeding, purulent drainage. Throat without erythema, tonsillar hypertrophy or exudate. Airway patent. NECK: Trachea midline. Non tender CARDIOVASCULAR: Regular rate and rhythm without murmurs, gallops, or rubs. She reports murmur but I could not hear a murmur on exam left upper right upper, left lower, lateral apex areas of auscultation. RESPIRATORY: Clear to auscultation. Breath sounds equal bilaterally. No wheezes, rales, or rhonchi. GASTROINTESTINAL: Abdomen soft, non-tender, nondistended. EXTREMITIES: No edema or joint tenderness. BACK: Nontender without deformity or crepitance. No flank tenderness. NEURO: AOx3. SKIN: No rash or erythema of visible areas Initial Vital Signs Initial Vital Signs: Vital Signs Temperature 99.2 F 12/24/23 16:11 Pulse Rate 78 12/24/23 16:11 Respiratory Rate 16 12/24/23 16:11 Blood Pressure 150/91 H 12/24/23 16:11 Pulse Oximetry 98 12/24/23 16:11 Oxygen Delivery Method Room Air 12/24/23 16:11 Course Orders Ordered: Discontinued Medications Aspirin (Aspirin 81 Mg Chew Tab) 324 mg PO NOW ONE Stop: 12/24/23 16:18 Last Admin: 12/24/23 19:24 Dose: Not Given Documented By: ERICH Hydralazine HCl (Hydralazine 20 Mg/Ml Vial) 10 mg IV NOW ONE Stop: 12/24/23 20:24 Last Admin: 12/24/23 20:27 Dose: 10 mg Documented By: ERICH Vital Signs Vital signs: Vital Signs - 8 hr 12/24/23 16:11 12/24/23 16:38 12/24/23 16:39 Temperature 99.2 F Pulse Rate 78 67 Respiratory Rate 16 Blood Pressure 150/91 H Pulse Oximetry 98 100 99 Oxygen Delivery Method Room Air 12/24/23 16:39 12/24/23 17:00 12/24/23 17:30 Temperature Pulse Rate 68 72 Respiratory Rate 14 23 Blood Pressure 157/85 H Pulse Oximetry 100 99 Oxygen Delivery Method 12/24/23 18:00 12/24/23 18:30 12/24/23 19:00 Temperature Pulse Rate 66 64 64 Respiratory Rate 18 18 19 Blood Pressure Pulse Oximetry 99 100 99 Oxygen Delivery Method 12/24/23 19:30 12/24/23 20:02 Temperature Pulse Rate 71 Respiratory Rate Blood Pressure 213/100 H Pulse Oximetry 100 Oxygen Delivery Method MDM - Arrhythmia/Palpitations Lab Data Attestation: I reviewed the patient's lab results. 12/24/23 16:41 12/24/23 16:41 Labs: Lab Results 12/24/23 12/24/23 Range/Units 16:41 19:05 WBC 5.2 (4.5-11.0) X10^3/uL RBC 4.36 (4.0-5.2) X10^6/uL Hgb 13.1 (12.0-16.0) g/dL Hct 38.1 (36-46) % MCV 87.4 (80-100) fL MCH 30.1 (26-34) PG MCHC 34.5 (30-36) % RDW 12.8 (11.6-14.8) % Plt Count 251 (150-400) X10^3/uL Neut % (Auto) 58.2 (50-75) % Lymph % (Auto) 32.7 (25-40) % [place] % (Auto) 6.2 (3-14) % Eos % (Auto) 1.1 L (2-4) % Baso % (Auto) 1.8 (0-2) % Neut # (Auto) 3000 (8294-1770) /uL Lymph # (Auto) 1700 (9855-5037) /uL [place] # (Auto) 300 (0-900) /uL Eos # (Auto) 100 (0-450) /uL Baso # (Auto) 100 (0-100) /uL PT 11.3 (9.4-12.5) SECONDS INR 1.0 (0.9-1.3) APTT 34 (25.1-36.5) SECONDS Sodium 138 (137-145) mmol/L Potassium 3.7 (3.4-5.1) mmol/L Chloride 109 H (98-107) mmol/L Carbon Dioxide 25 (22-32) mmol/L BUN 20 H (7-17) mg/dL Creatinine 0.59 (0.52-1.04) mg/dL Estimated GFR > 60 (>60) mL/min BUN/Creatinine Ratio 33.9 H (6-22) Glucose 93 (80-110) mg/dL Calcium 9.8 (8.4-10.2) mg/dL Magnesium 2.2 (1.6-2.3) mg/dL Total Bilirubin 0.4 (0.2-1.3) mg/dL AST 31 (14-36) IU/L ALT 23 (<35) IU/L Alkaline Phosphatase 101 (38-126) U/L Total Creatine Kinase 219 H (30-135) U/L Troponin I < 0.012 < 0.012 (0.01-0.034) ng/mL NT-Pro-B Natriuret Pep 75 (<125) pg/mL Total Protein 7.1 (6.3-8.2) g/dL Albumin 4.4 (3.5-5.0) g/dL Globulin 2.7 (1.7-4.1) g/dL Albumin/Globulin Ratio 1.6 (1.0-2.8) Lipase 108 (23-300) U/L Imaging Data Chest x-ray: Radiologist's Impresson: [place] [address] XRay Report Signed Patient: Trinh Bocanegra MR#: [id number] : 1960 Acct:[id number] Age/Sex: 63 / F Date of Service: 12/24/23 Loc: ED Accession Number: [id number] Procedure: XR chest 1V Ordering Provider: Alie Jensen D.O. PROCEDURE: XR CHEST 1V INDICATIONS: chest pain TECHNIQUE: One view of the chest was acquired. COMPARISON: None. FINDINGS: Surgical changes and devices: None. Lungs and pleura: Lungs are clear. No pleural effusions or pneumothorax. Mediastinum: Mediastinal contours appear normal. Heart size is normal. Bones and chest wall: No suspicious bony lesions. Overlying soft tissues appear unremarkable. IMPRESSION: No acute cardiopulmonary abnormality is seen. Dictated by: Sanket Birmingham M.D. on 12/24/2023 at 17:24 Approved by: Sanket Birmingham M.D. on 12/24/2023 at 17:25 ECG Data Interpretation: Normal sinus rhythm with rate of 70, no obvious ST segment elevation or depression changes.TX 128, QRS 82, QTc 444. MDM Narrative Medical decision making narrative: 63-year-old with history of palpitation symptoms, prior cardiac monitoring last year, no specific diagnosis recalled, increasing palpitation symptoms recent days, sometimes aborted with coughing, suspicious for possible SVT, she does not recognize that diagnosis. Symptoms lasts 1 minute or less. Normal sinus rhythm on monitor, no ectopy. EKG shows normal sinus rhythm as well, normal intervals. Screening labs unremarkable including electrolytes. Chest x-ray normal. Troponin negative, we will obtain interval troponin. Intermittent symptoms and prior history does not seem consistent with pulmonary embolism, no leg pain or swelling symptoms, no dyspnea or chest pain, no resting tachycardia. Could consider metoprolol on discharge, however her resting heart rate is 60-65, we will hold for now. Consider repeat outpatient cardiac monitoring, we will give contact information for local cardiology on-call, though she might obtain testing through her PCP through the [facility], or be referred to Cardiology through the [facility]. Await results interval troponin. Repeat troponin also unmeasurable negative. Systolic blood pressure 157. Discharged home, follow up for outpatient Holter monitor, given contact information for Dr. Camarillo cardiology on-call Critical Care Time Critical Care Time Critical Care Time: No Total Critical Care Time: 31 Attestation: The high probability of a clinically significant, sudden or life threatening deterioration of the [cardiopulmonary] system(s) required my full and direct attention, intervention and personal management. The aggregate critical care time was [31] minutes. This time is in addition to time spent performing reported procedures but includes the following: [x] Data Review and interpretation [x] Patient assessment and monitoring of vital signs [x] Documentation [x] Medication orders and management Discharge Plan Departure Patient Disposition: Home Clinical Impression: Palpitations Instructions: DI for Arrhythmias Activity Restrictions/Additional Instructions: Intermittent palpitation like symptoms, prior cardiac monitoring last year by report, more frequent palpitation like episodes, 1 minute or less in duration, more frequent in recent couple of weeks. manager coding showed normal rhythm in the ED, no ectopic or other abnormal beats were captured. EKG with unremarkable intervals, normal sinus rhythm. Blood testing showed normal electrolytes. Serum blood test did not suggest heart attack at this time. Chest x-ray unremarkable. Consider repeat cardiac monitoring, contact information provided for local gis analyst on-call, or this could be arranged through your regular primary care physician, contact them Wednesday. He reported a heart murmur, I could not hear a murmur today on exam, but sometimes an echocardiogram ultrasound of the heart might be helpful, consider workup as an outpatient. We could consider use of metoprolol medication to slow down your heart if there is fast rate rhythm problems, however your resting heart rate is not very fast, and you could become symptomatic with metoprolol, we will hold for now. Follow up with the cardiology, follow up with your regular provider. Prescriptions: No Action ondansetron HCl 4 mg tablet 4 mg PO Q8H PRN (Reason: nausea and vomiting) Qty: 5 0RF oxycodone 5 mg tablet 5 mg PO Q4H PRN (Reason: pain) Qty: 30 0RF Rx Instructions: postop exempt Referrals: Carlos Camarillo MD [Physician] - Miscellaneous,MD Germania [Primary Care Provider] - Stand Alone Forms: Patient Portal/API
[2023-12-24 19:40] LABS: Troponin I < 0.012 ng/mL (0.01-0.034)
--- NOTE | 2023-12-24 20:03 | PC.NURSE ---
Dr Murphy aware of pts elevated bp,wants to recheck it in approx 15 minutes.
[2023-12-24] MEDS: HYDRALAZINE 20 MG/ML VIAL 10 MG IV (20:27)
== END 2023-12-24 21:09 | disposition home or self-care (01) ==
PROVIDERS: Emergency Medicine; Emergency Provider Emergency Medicine
DX: R00.2 Palpitations (principal)
CPT/HCPCS: 36415; 71045; 80053; 82550; 83690; 83735; 83880; 84484; 85025; 85610; 85730; 93005; 96374; 99284; J0360

== ENCOUNTER 2024-06-12 17:29 | Emergency (ER) | payer OTHER, SELFPAY ==
[2024-06-12 17:39] VITALS: BP 161/84; PULSE 86; RESP 87; TEMP 36.6; O2SAT 100; BMI 24.0
[2024-06-12 18:52] LABS: Add Manual Diff / Slide Review NO; Basophils Absolute Auto 100 /uL (0-100); Basophils Percent Auto 2.4 % (0-2); Eosinophils Absolute Auto 100 /uL (0-450); Eosinophils Percent Auto 1.5 % (2-4); Hematocrit 41.3 % (36-46); Hemoglobin 13.8 g/dL (12.0-16.0); Lymphocytes Absolute Auto 1800 /uL (1100-4500); Lymphocytes Percent Auto 32.6 % (25-40); Mean Corpuscular HGB Conc 33.4 % (30-36); Mean Corpuscular Hemoglobin 29.9 PG (26-34); Mean Corpuscular Volume 89.6 fL (80-100); Monocytes Absolute Auto 400 /uL (0-900); Neutrophils Absolute Auto 3000 /uL (1500-7000); Neutrophils Percent Auto 55.5 % (50-75); Platelet Count 263 X10^3/uL (150-400); Red Cell Distribution Width 13.1 % (11.6-14.8); White Blood Cell Count 5.4 X10^3/uL (4.5-11.0)
[2024-06-12 19:12] LABS: Alanine Aminotransferase 30 IU/L (<35); Albumin 4.3 g/dL (3.5-5.0); Albumin Globulin Ratio 1.4 (1.0-2.8); Alkaline Phosphatase 82 U/L (38-126); Aspartate Aminotransferase 36 IU/L (14-36); Bilirubin Total 0.3 mg/dL (0.2-1.3); Blood Urea Nitrogen 23 mg/dL (7-17); Calcium 9.5 mg/dL (8.4-10.2); Carbon Dioxide 29 mmol/L (22-32); Chloride 106 mmol/L (98-107); Estimated Glomerular Filt Rate > 60 mL/min (>60); Glucose 125 mg/dL (80-110); HEMOLYSIS 24 (0-50); Potassium 3.6 mmol/L (3.4-5.1); Sodium 138 mmol/L (137-145); Total Protein 7.3 g/dL (6.3-8.2)
--- NOTE | 2024-06-12 21:21 | ED_ITS ---
HPI - Recheck/Abnormal Lab/Rx General Chief Complaint: Recheck/Abnormal Lab/Rx Stated Complaint: breast px Time Seen by Provider: 06/12/24 21:21 History of Present Illness HPI narrative: Patient is a healthy 63-year-old female who presents today with bilateral breast pain. She reports that she would explant surgery done at the [facility] on May 04. She was had she had some postsurgical discomfort ultimately felt better however the pain has started to increase again. Over last couple days pain is quite severe she reports that it feels very deep inside hurts to breathe hurts to move. She denies any sort of fever. There is no erythema or significant rash. Feels like she needs extra support but can not quite find the right brow. She has not taken anything at home for pain. Related Data Previous Rx's Medication Instructions Recorded ondansetron HCl 4 mg tablet 4 mg PO Q8H PRN nausea and 08/18/23 vomiting #5 tabs oxycodone 5 mg tablet 5 mg PO Q4H PRN pain #30 tabs 08/18/23 oxycodone-acetaminophen 5 mg-325 1 tab PO Q6H PRN pain #10 tabs 06/12/24 mg tablet (Percocet) Allergies Allergy/AdvReac Type Severity Reaction Status Date / Time No Known Drug Allergies Allergy Verified 12/24/23 16:17 Patient History Medical History Anesthesia complication Surgical History History of open reduction and internal fixation (ORIF) procedure (01/22/23) Social History Smoking Status: Former smoker alcohol intake: current Smoking Status: Former smoker alcohol intake frequency: a few times a week Exam Initial Vital Signs Initial Vital Signs: Vital Signs Temperature 97.8 F 06/12/24 17:39 Pulse Rate 86 06/12/24 17:39 Respiratory Rate 87 H 06/12/24 17:39 Blood Pressure 161/84 H 06/12/24 17:39 Pulse Oximetry 100 06/12/24 17:39 Oxygen Delivery Method Room Air 06/12/24 17:39 GENERAL: Appears uncomfortable standing and can not sit HEENT: Head atraumatic,EOMI, pupils reactive, face symmetric, moist mucous membranes BREAST: Both breasts are extremely tender no significant swelling no appreciation of erythema she reports pain under her breasts I do not appreciate any significant edema but she is in obvious pain CARDIOVASCULAR: Regular rate and rhythm without murmurs, rubs or gallops. RESPIRATORY: Breath sounds equal bilaterally, no wheezes rales or rhonchi. ABDOMEN: Soft, nontender. Normoactive bowel sounds all 4 quadrants. No guarding or rebound. EXTREMITIES: Normal range of motion, no clubbing or edema. Neurovascularly intact NEUROLOGICAL: Alert and oriented x4.Normal gait and speech. Cranial nerves II through XII grossly intact. SKIN: Warm, dry, no laceration, no petechiae, no rashes or lesions. Course Orders Ordered: ED Orders 06/12/24 18:20 Complete Blood Count AUTO DIFF Stat Comprehensive Metabolic Panel Stat 06/12/24 21:27 CT chest w con Stat Discontinued Medications Ketorolac Tromethamine (Ketorolac 30 Mg/Ml Vial) 15 mg IV NOW ONE Stop: 06/12/24 21:28 Last Admin: 06/12/24 21:45 Dose: 15 mg Documented By: JULIUS Oxycodone/Acetaminophen (Oxycodone/Apap 5/325 Prepack) 1 bottle MISC NOW ONE Stop: 06/12/24 22:51 Last Admin: 06/12/24 23:08 Dose: 1 bottle Documented By: JULIUS Vital Signs Vital signs: Vital Signs - 8 hr 06/12/24 21:44 06/12/24 21:45 06/12/24 21:45 Pulse Rate 69 71 Respiratory Rate Blood Pressure 163/86 H Pulse Oximetry 100 100 Oxygen Delivery Method 06/12/24 23:05 Pulse Rate 71 Respiratory Rate 16 Blood Pressure 169/87 H Pulse Oximetry 100 Oxygen Delivery Method Room Air MDM - Recheck/Abnormal Lab/Rx Lab Data 06/12/24 18:20 06/12/24 18:20 Labs: Lab Results 06/12/24 Range/Units 18:20 WBC 5.4 (4.5-11.0) X10^3/uL RBC 4.60 (4.0-5.2) X10^6/uL Hgb 13.8 (12.0-16.0) g/dL Hct 41.3 (36-46) % MCV 89.6 (80-100) fL MCH 29.9 (26-34) PG MCHC 33.4 (30-36) % RDW 13.1 (11.6-14.8) % Plt Count 263 (150-400) X10^3/uL Neut % (Auto) 55.5 (50-75) % Lymph % (Auto) 32.6 (25-40) % [place] % (Auto) 8.0 (3-14) % Eos % (Auto) 1.5 L (2-4) % Baso % (Auto) 2.4 H (0-2) % Neut # (Auto) 3000 (9153-6371) /uL Lymph # (Auto) 1800 (9433-9981) /uL [place] # (Auto) 400 (0-900) /uL Eos # (Auto) 100 (0-450) /uL Baso # (Auto) 100 (0-100) /uL Sodium 138 (137-145) mmol/L Potassium 3.6 (3.4-5.1) mmol/L Chloride 106 (98-107) mmol/L Carbon Dioxide 29 (22-32) mmol/L BUN 23 H (7-17) mg/dL Creatinine 0.59 (0.52-1.04) mg/dL Estimated GFR > 60 (>60) mL/min BUN/Creatinine Ratio 39.0 H (6-22) Glucose 125 H (80-110) mg/dL Calcium 9.5 (8.4-10.2) mg/dL Total Bilirubin 0.3 (0.2-1.3) mg/dL AST 36 (14-36) IU/L ALT 30 (<35) IU/L Alkaline Phosphatase 82 (38-126) U/L Total Protein 7.3 (6.3-8.2) g/dL Albumin 4.3 (3.5-5.0) g/dL Globulin 3.0 (1.7-4.1) g/dL Albumin/Globulin Ratio 1.4 (1.0-2.8) Imaging Data CT scan - chest: Radiologist's Impression: PROCEDURE: CT CHEST W CON INDICATIONS: bilateral breast pain, post explant surgery TECHNIQUE: After the administration of intravenous contrast, 5 mm thick sections acquired from the pulmonary apices to the posterior costophrenic angles. 1 mm axial lung, 5 mm thick coronal and sagittal reformats and 7 mm axial MIP were acquired. For radiation dose reduction, the following was used: automated exposure control, adjustment of mA and/or kV according to patient size. COMPARISON: None. FINDINGS: Image quality: Diagnostic. Lower Neck: No enlarged lymph nodes. Thyroid: Thyroid gland is enlarged with focal areas of low attenuation in the left lobe. Axillae: No enlarged lymph nodes. Chest Wall: Unremarkable. No areas inflammation fluid collection are identified. Bones: Unremarkable. Lungs and Pleura: No pneumothorax or pleural effusions. No consolidation or suspicious nodules. Heart: Heart size is normal. No pericardial effusion. Thoracic Vessels: The aorta and pulmonary arteries demonstrate normal size. Mediastinum and [place]: No enlarged lymph nodes. Esophagus: No wall thickening. No hiatal hernia. Upper Abdomen: Visualized upper abdomen solid organs and bowel loops appear normal. IMPRESSION: No areas appreciable inflammatory change or focal fluid collections to suggest abscess. Dictated by: Rowena Keith M.D. on 06/12/2024 at 22:16 MDM Narrative Medical decision making narrative: 63-year-old female presents today with bilateral breast pain. Postop May 04 with excellent surgery. Increasing pain she was quite uncomfortable. I do not appreciate any sort of erythema swelling. There is no vesicles or obvious rash. No evidence of mastitis. She also hurts bilaterally. Blood work has been reviewed overall reassuring without any sort of leukocytosis or abnormality. CT chest does not show any inflammation abscess or issue. Prescription monitoring program only shows 12 tablets of oxycodone prescribed May 04 Unclear why she was having so much pain. The skin itself does not appear to be infected there is no evidence of cellulitis or infection CT so any surgery complication. She received Toradol here in the ED. she says she does not have any help at home she lives alone possible that she is overdoing it. Discharge Plan Departure Patient Disposition: Home Clinical Impression: Post-operative pain Activity Restrictions/Additional Instructions: *You have been diagnosed with postoperative pain *What to do: At this time I think you overdid it. I do recommend resting trying some ice. Please talk with your surgeon *Continue to take medications as directed Percocet 1 tab every 6 hours if needed for severe pain *Follow up with your primary care provider in 2-3 days or call [phone] *Return to ER if you should have increasing pain fever redness or any new, worsening or concerning symptoms CONTROLLED SUBSTANCE DISCHARGE (Narcotoic/benzodiazepine/Flexeril/Phenergan) 1. You have been prescribed narcotic medications, it does have acetaminophen/Tylenol/paracetamol in it, DO NOT TAKE MORE THAN 4,00mg in 24 hours of Tylenol. TRAMADOL DOES NOT CONTAIN TYLENOL 2. Please understand that we cannot provide further refills of narcotics, benzodiazepines or controlled substances through the ED and her pain management will need to be through your provider. 3. While on these medications you cannot drive or operate heavy machinery. 4. You cannot sign legal documents or perform any duties such as this. 5. As long as you're taking opiate pain medications he should also be taking a stool softener such as Colace, Dulcolax, MiraLAX or prune juice, to help avoid constipation. Prescriptions: New oxycodone-acetaminophen [Percocet] 5-325 mg tablet 1 tab PO Q6H PRN (Reason: pain) Qty: 10 0RF No Action ondansetron HCl 4 mg tablet 4 mg PO Q8H PRN (Reason: nausea and vomiting) Qty: 5 0RF oxycodone 5 mg tablet 5 mg PO Q4H PRN (Reason: pain) Qty: 30 0RF Rx Instructions: postop exempt Referrals: Miscellaneous,Doctor, MD [Primary Care Provider] - Stand Alone Forms: Patient Portal/API/Survey
--- NOTE | 2024-06-12 21:27 | DI.CT.S_ITS ---
PROCEDURE: CT CHEST W CON INDICATIONS: bilateral breast pain, post explant surgery TECHNIQUE: After the administration of intravenous contrast, 5 mm thick sections acquired from the pulmonary apices to the posterior costophrenic angles. 1 mm axial lung, 5 mm thick coronal and sagittal reformats and 7 mm axial MIP were acquired. For radiation dose reduction, the following was used: automated exposure control, adjustment of mA and/or kV according to patient size. COMPARISON: None. FINDINGS: Image quality: Diagnostic. Lower Neck: No enlarged lymph nodes. Thyroid: Thyroid gland is enlarged with focal areas of low attenuation in the left lobe. Axillae: No enlarged lymph nodes. Chest Wall: Unremarkable. No areas inflammation fluid collection are identified. Bones: Unremarkable. Lungs and Pleura: No pneumothorax or pleural effusions. No consolidation or suspicious nodules. Heart: Heart size is normal. No pericardial effusion. Thoracic Vessels: The aorta and pulmonary arteries demonstrate normal size. Mediastinum and [place]: No enlarged lymph nodes. Esophagus: No wall thickening. No hiatal hernia. Upper Abdomen: Visualized upper abdomen solid organs and bowel loops appear normal. IMPRESSION: No areas appreciable inflammatory change or focal fluid collections to suggest abscess. Dictated by: Rowena Keith M.D. on 06/12/2024 at 22:16 Approved by: Rowena Keith M.D. on 06/12/2024 at 22:20
[2024-06-12 21:44] VITALS: PULSE 69; O2SAT 100
[2024-06-12 21:45] VITALS: BP 163/86; PULSE 71; O2SAT 100
[2024-06-12] MEDS: KETOROLAC 30 MG/ML VIAL 15 MG IV (21:45)
[2024-06-12 23:05] VITALS: BP 169/87; PULSE 71; RESP 16; O2SAT 100
[2024-06-12] MEDS: OXYCODONE/APAP 5/325 PREPACK 1 BOTTLE MISC (23:08)
== END 2024-06-12 23:14 | disposition home or self-care (01) ==
PROVIDERS: Emergency Provider Emergency Medicine
DX: G89.18 Other acute postprocedural pain (principal); N64.4 Mastodynia
CPT/HCPCS: 36415; 71260; 80053; 85025; 96374; 99284; J1885; Q9967

== ENCOUNTER → 2024-09-21 08:11 | Outpatient (CLI) | payer OTHER, SELFPAY ==
--- NOTE | 2024-09-21 08:13 | DI.MRI.S_ITS ---
PROCEDURE: MR FOOT RT WO CON INDICATIONS: pain in rt foot TECHNIQUE: Multiphasic, multisequence MRI of the forefoot was performed, without intravenous contrast administration. COMPARISON: [facility] [place], CR, XR ANKLE 3 VIEWS WEIGHT BEARING RIGHT, 09/28/2023, 14:00. FINDINGS: Image quality: Diagnostic. Significant susceptibility artifacts are noted. Bones and joints: Susceptibility artifacts over plantar aspect of midfoot and forefoot at the level of 2nd and 3rd metatarsal shaft and MTP joints are seen slightly limits the evaluation of adjacent structures. Mild edema involving 4th metatarsal base is seen without definite fracture line or cortical disruption. No other area of abnormal marrow signal. No displaced fracture or dislocation. No suspicious intraosseous lesion. 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 Soft tissues: The visualized plantar foot muscles demonstrate normal signal and bulk. Visualized flexor and extensor tendons appear intact, without tenosynovitis. The distal insertions of the peroneus brevis and longus tendons appear intact. The principal Lisfranc ligament appears intact. No soft tissue ganglion cysts or bursal fluid collections. Sagittal images demonstrate no evidence for plantar plate tears. IMPRESSION: 1. Slightly degraded study due to significant susceptibility artifacts in plantar aspect of midfoot and forefoot as above. 2. Subtle marrow edema involving 4th metatarsal base concerning for mild stress related changes versus nondisplaced stress fracture in this area suggest clinical correlation. 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 No displaced fracture or dislocation. No suspicious bony lesions. 3. Extensor and flexor tendons are intact. Principal Lisfranc ligament is intact. 4. No gross plantar foot muscle signal abnormalities. No evidence of obvious plantar plate tear. Dictated by: Billy Camarillo M.D. on 09/21/2024 at 11:35 Approved by: Billy Camarillo M.D. on 09/21/2024 at 11:47
== END ==
PROVIDERS: PCP Internal Medicine; Referring Provider Internal Medicine; Visit Provider Internal Medicine
DX: M19.071 Primary osteoarthritis, right ankle and foot (principal); M79.671 Pain in right foot
CPT/HCPCS: 73718

== ENCOUNTER → 2024-09-21 08:13 | Outpatient (CLI) | payer OTHER, SELFPAY ==
--- NOTE | 2024-09-21 08:14 | DI.MRI.S_ITS ---
PROCEDURE: MR HEAD/BRAIN WO/W CON INDICATIONS: Unsteady gait TECHNIQUE: Noncontrast axial T1 spin echo, axial T2 fast spin echo, sagittal and axial FLAIR, coronal T2 fast spin echo, axial gradient echo, axial diffusion and ADC through the brain. After the administration of contrast, axial and coronal and sagittal T1 spin echo with fat saturation through the brain. COMPARISON: None. FINDINGS: Image quality: Excellent. CSF spaces: Basal cisterns are patent. No extra-axial fluid collections. Ventricles are normal in size and shape. Brain: No midline shift. No intracranial bleeds or masses. No abnormal intracranial enhancement. There is a cystic structure just inferior to the left basal ganglia measuring 1.1 cm, may represent prominent perivascular space versus choroidal fissure cyst. There is cerebral volume loss for age. There is periventricular white matter chronic small vessel ischemic change. The brainstem appears normal. Diffusion-weighted images demonstrate no acute infarct. No chronic ischemic insults. Normal intravascular flow voids are present. Skull and face: Calvarial marrow is normal in signal. Orbits appear normal. Sinuses: Sinuses and mastoids appear clear. IMPRESSION: No acute intracranial abnormalities or abnormal intracranial enhancement. Mild age-appropriate global volume loss and minimal chronic microvascular ischemic changes. Small cyst just inferior to the left basal ganglia measuring 1.1 cm, may represent a choroidal fissure cyst versus prominent perivascular space. Dictated by: Carlos Fischer M.D. on 09/26/2024 at 10:23 Approved by: Carlos Fischer M.D. on 09/26/2024 at 10:27
== END ==
PROVIDERS: PCP Internal Medicine; Referring Provider Nurse Practitioner; Visit Provider Nurse Practitioner
DX: G93.0 Cerebral cysts (principal); M19.071 Primary osteoarthritis, right ankle and foot; R26.81 Unsteadiness on feet; M79.671 Pain in right foot
CPT/HCPCS: 70553; 73718; A9579